=== PATIENT | male | born 1950 | race American Indian/Alaskan Native ===

== ENCOUNTER 2018-09-11 02:40 | Emergency (ER) | payer MEDICARE, OTHER ==
[2018-09-11] MEDS ORDERED: NACL 0.9% 1000 ML 1,000 ML IV ONE (02:47)
[2018-09-11] MEDS ORDERED: ZOFRAN IV ONE (03:47)
[2018-09-11] MEDS ORDERED: MORPHINE IV ONE (03:47)
--- NOTE | 2018-09-11 03:48 | Emergency Department Report ---
<SARAH ANNE - Last Filed: 09/11/18 07:58> ED General Adult HPI - General Chief complaint: Abdominal Pain Stated complaint: SHARP PAIN IN LEFT SIDE Time Seen by Provider: 09/11/18 03:39 - Related Data Previous Rx's Medication Instructions Recorded Last Taken Type Ciprofloxacin HCl [Ciprofloxacin 500 mg PO Q12H #14 tab 09/11/18 Unknown Rx TAB] Ondansetron [Zofran Odt] 4 mg PO Q8HR PRN #14 tab.rapdis 09/11/18 Unknown Rx metroNIDAZOLE [Flagyl] 500 mg PO Q12HR #14 tab 09/11/18 Unknown Rx traMADol [Ultram 50 MG tab] 50 mg PO Q4HR PRN #14 tablet 09/11/18 Unknown Rx Allergies Allergy/AdvReac Type Severity Reaction Status Date / Time No Known Allergies Allergy Verified 09/11/18 03:46 ED Past Medical Hx - Medications Home Medications: Home Medications Medication Instructions Recorded Confirmed Last Taken Type Ciprofloxacin HCl [Ciprofloxacin 500 mg PO Q12H #14 tab 09/11/18 Unknown Rx TAB] Ondansetron [Zofran Odt] 4 mg PO Q8HR PRN #14 tab.rapdis 09/11/18 Unknown Rx metroNIDAZOLE [Flagyl] 500 mg PO Q12HR #14 tab 09/11/18 Unknown Rx traMADol [Ultram 50 MG tab] 50 mg PO Q4HR PRN #14 tablet 09/11/18 Unknown Rx ED Medical Decision Making - Lab Data Result diagrams: 09/11/18 02:52 09/11/18 02:52 - Medical Decision Making Mr Dorado is a 68-year-old man signed out to me by my colleague Dr. Harkins. Patient presents to the emergency room with complaint of left sided abdominal pain. The abdominal pain started in the left lower quadrant, and moved to the suprapubic region, constant for 12 hours. He stated that he has been having nausea and vomiting. No urinary symptoms, no testicular pain. Patient stated that he has been having fever and chills but denied any diarrhea. Patient labs reviewed and is unremarkable. CT abdomen and pelvis showed ileus but no evidence of bowel obstruction. Lactic acid is negative. Patient stated that he is feeling much better. No nausea or vomiting since he received the antibiotic medication. Patient stated that his pain is completely resolved now. On examination, patient is nontoxic and in no acute distress. Abdomen is soft, nontender, no guarding, no rebound tenderness or tenderness in the left lower quadrant area, no pulsating mass or hernia. Patient will be discharged on ciprofloxacin and Flagyl and Zofran and advised to follow-up with his primary care physician in the next 2-3 days. Patient also advised to return to the ER if his symptoms return. Patient understood the inst ruction well and agreed with the plan and stated that he will follow up with his primary care physician in the next 2-3 days. ED Disposition Clinical Impression: Abdominal pain, Ileus Disposition: DC- TO HOME OR SELFCARE Is pt being admited?: No Condition: Stable Instructions: Abdominal Pain (ED), Ileus (ED) Prescriptions: Ciprofloxacin HCl [Ciprofloxacin TAB] 500 mg PO Q12H #14 tab metroNIDAZOLE [Flagyl] 500 mg PO Q12HR #14 tab traMADol [Ultram 50 MG tab] 50 mg PO Q4HR PRN #14 tablet PRN Reason: Pain Ondansetron [Zofran Odt] 4 mg PO Q8HR PRN #14 tab.rapdis PRN Reason: Nausea And Vomiting [facility] Days <BRITTANY HARKINS - Last Filed: 09/12/18 11:57> ED General Adult HPI - General Source: patient, RN notes reviewed Mode of arrival: Ambulatory Limitations: No Limitations - History of Present Illness Initial comments: Primary care Dr.: Dr. Watson This is a 68-year-old gentleman. The patient is not known to this provider prev iously. The patient has a past medical history of appendectomy, questionable rupture, hypertension. The patient presents to the emergency room today with complaint of nontraumatic left sided abdominal pain. The abdominal pain started in the left lower quadrant, and moved to the suprapubic region. This patient has been present for 12 hours. It is constant. It increases with palpation. It decreases with rest. Positive nausea, positive vomiting. No urinary symptoms, no testicular pain. There is no headache, there is no neck pain, there is no chest pain, patient denies leg pain, leg swelling, fevers, chills. -: Gradual Location: abdomen Radiation: abdomen, periumbillical Severity scale (0 -10): 10 Quality: aching Consistency: other Improves with: other Worsens with: other Associated Symptoms: malaise, nausea/vomiting, weakness ED Review of Systems ROS: Stated complaint: SHARP PAIN IN LEFT SIDE Other details as noted in HPI Constitutional: denies: fever Eyes: denies: vision change ENT: denies: epistaxis Respiratory: denies: cough Cardiovascular: denies: chest pain Gastrointestinal: abdominal pain, nausea, vomiting Genitourinary: denies: urgency, dysuria, frequency, hematuria, testicular pain Musculoskeletal: denies: back pain Skin: denies: lesions Neurological: denies: headache Psychiatric: denies: anxiety ED Past Medical Hx - Past Medical History Previous Medical History?: Yes Hx Hypertension: Yes Hx Arthritis: Yes Additional medical history: High Cholesterol - Surgical History Past Surgical History?: Yes Hx Appendectomy: Yes Additional Surgical History: Ruptured Appendix December 2017 - Social History Smoking Status: Never Smoker ED Physical Exam - General Limitations: No Limitations General appearance: alert, anxious, in distress - Head Head exam: Present: atraumatic, normocephalic - Eye Eye exam: Present: normal appearance, EOMI. Absent: nystagmus - ENT ENT exam: Present: normal exam, normal orophraynx, mucous membranes moist, normal external ear exam - Neck Neck exam: Present: normal inspection, full ROM. Absent: tenderness, meningismus - Respiratory Respiratory exam: Present: normal lung sounds bilaterally. Absent: respiratory distress - Cardiovascular Cardiovascular Exam: Present: regular rate, normal rhythm, normal heart sounds. Absent: bradycardia, tachycardia, irregular rhythm, systolic murmur, diastolic m urmur, rubs, gallop - GI/Abdominal GI/Abdominal exam: Present: soft, tenderness, other (there is left upper quadrant, left flank tenderness.). Absent: distended, guarding, rebound, rigid, pulsatile mass - Rectal Rectal exam: Present: deferred - exam: Present: normal inspection. Absent: testicular tenderness External exam: Present: normal external exam, other (chaperoned by nurse juan enriquez). Absent: erythema, lacerations, ecchymosis, bleeding - Extremities Exam Extremities exam: Present: normal inspection, full ROM, other (2+ pulses noted in the bilateral upper, lower extremities. Compartments soft. No long bony tenderness. The pelvis is stable.). Absent: pedal edema, joint swelling, calf tenderness - Back Exam Back exam: Present: normal inspection, full ROM. Absent: tenderness, CVA tenderness (R), paraspinal tenderness, vertebral tenderness - Neurological Exam Neurological exam: Present: alert, oriented X3, other (Extraocular movements intact. Tongue midline. No facial droop. Facial sensation intact to light touch in the V1, V2, V3 distribution bilaterally. 5 and 5 strength in 4 extremities.. Sensation is intact to light touch in 4 extremities.). Absent: motor sensory deficit - Psychiatric Psychiatric exam: Present: normal affect, normal mood - Skin Skin exam: Present: warm, dry, intact, normal color. Absent: rash ED Course Vital Signs 09/11/18 09/11/18 09/11/18 02:43 02:45 03:24 Temperature 98.2 F 98.2 F Pulse Rate 92 H 86 103 H Respiratory 18 18 Rate Blood Pressure 142/95 142/95 O2 Sat by Pulse 96 97 Oximetry 09/11/18 09/11/18 09/11/18 03:30 03:46 04:00 Temperature Pulse Rate 85 82 82 Respiratory 21 18 25 H Rate Blood Pressure 149/86 149/86 148/85 O2 Sat by Pulse 97 96 94 Oximetry 09/11/18 09/11/18 09/11/18 04:16 04:30 04:46 Temperature Pulse Rate 88 72 73 Respiratory 20 21 19 Rate Blood Pressure 148/85 148/85 148/85 O2 Sat by Pulse 96 95 95 Oximetry 09/11/18 09/11/18 09/11/18 05:04 05:16 05:30 Temperature Pulse Rate 91 H 74 81 Respiratory 32 H 22 17 Rate Blood Pressure 148/85 148/85 148/85 O2 Sat by Pulse Oximetry 09/11/18 09/11/18 09/11/18 06:00 06:16 06:30 Temperature Pulse Rate 81 107 H 84 Respiratory 21 18 20 Rate Blood Pressure 130/84 130/84 139/87 O2 Sat by Pulse Oximetry 09/11/18 09/11/18 09/11/18 06:46 07:00 07:16 Temperature Pulse Rate 80 80 82 Respiratory 17 17 17 Rate Blood Pressure 139/87 133/85 133/85 O2 Sat by Pulse Oximetry 09/11/18 09/11/18 09/11/18 07:30 07:46 08:00 Temperature Pulse Rate 80 83 81 Respiratory 16 18 20 Rate Blood Pressure 133/85 133/85 131/83 O2 Sat by Pulse Oximetry 09/11/18 08:16 Temperature Pulse Rate 84 Respiratory 23 Rate Blood Pressure 131/83 O2 Sat by Pulse Oximetry - Reevaluation(s) Reevaluation #1: 09/11/18 04:16 Differential diagnosis, including but not limited to: Colitis, diverticulitis, renal colic, inflammatory bowel disease Assessment and plan: 68-year-old gentleman with left-sided abdominal pain, nause a and vomiting. He is afebrile with reassuring vital signs, and appears to be uncomfortable. EKG nonspecific, not having chest pain, doubt atypical presentation of acute coronary syndrome. We will treat the patient's pain aggressively. Screening laboratory studies, urinalysis have been obtained. CT scan of the abdomen and pelvis has been ordered, and is pending at this time. Reevaluation #2: 09/11/18 05:37 care will be transferred to the oncoming er physician Dr Anne, to follow up on ct a/p and reassess after initial therapies would plan for discharge if ct a/p negative for acute disease and patient feeling improved and able to tolerate liquids Reevaluation #3: 09/11/18 05:42 CT scan of the abdomen and pelvis suggest possible ileus. Patient requesting additional pain medication, nausea medication. Reglan, fentanyl ordered. Care will be transferred to the oncoming ER physician to reassess after these therapies have been administered. If still vomiting and having pain, would admit for observation, and anti-medics, pain control. ED Medical Decision Making - Lab Data Result diagrams: 09/11/18 02:52 09/11/18 02:52 Vital Signs 09/11/18 09/11/18 02:43 02:45 Temperature 98.2 F 98.2 F Pulse Rate 92 H 86 Respiratory 18 18 Rate Blood Pressure 142/95 142/95 O2 Sat by Pulse 96 97 Oximetry Lab Results 09/11/18 09/11/18 Range/Units 02:52 03:30 WBC 10.6 (4.5-11.0) K/mm3 RBC 5.55 H (3.65-5.03) M/mm3 Hgb 16.1 H (11.8-15.2) gm/dl Hct 46.9 H (35.5-45.6) % MCV 85 (84-94) fl MCH 29 (28-32) pg MCHC 34 (32-34) % RDW 15.4 H (13.2-15.2) % Plt Count 302 (140-440) K/mm3 Lymph % (Auto) 8.7 L (13.4-35.0) % [place] % (Auto) 4.7 (0.0-7.3) % Eos % (Auto) 0.1 (0.0-4.3) % Baso % (Auto) 0.3 (0.0-1.8) % Lymph # 0.9 L (1.2-5.4) K/mm3 [place] # 0.5 (0.0-0.8) K/mm3 Eos # 0.0 (0.0-0.4) K/mm3 Baso # 0.0 (0.0-0.1) K/mm3 Seg Neutrophils % 86.2 H (40.0-70.0) % Seg Neutrophils # 9.1 H (1.8-7.7) K/mm3 Urine Color Yellow (Yellow) Urine Turbidity Clear (Clear) Urine pH 5.0 (5.0-7.0) Ur Specific [place] 1.028 (1.003-1.030) Urine Protein 100 mg/dl (Negative) mg/dL Urine Glucose (UA) Neg (Negative) mg/dL Urine Ketones Tr (Negative) mg/dL Urine Blood Neg (Negative) Urine Nitrite Neg (Negative) Urine Bilirubin Neg (Negative) Urine Urobilinogen < 2.0 (<2.0) mg/dL Ur Leukocyte Esterase Neg (Negative) Urine WBC (Auto) 1.0 (0.0-6.0) /HPF Urine RBC (Auto) 1.0 (0.0-6.0) /HPF Urine Mucus Few /HPF - EKG Data -: EKG Interpreted by Wy EKG shows normal: sinus rhythm Rate: normal - EKG Data When compared to previous EKG there are: previous EKG unavailable 09/11/18 04:17 This is a normal sinus rhythm, 82 bpm, normal axis, normal intervals, Q wave not ed in the inferior leads, no prior for comparison, this is an abnormal EKG, this is not consistent with ST elevation myocardial infarction. - Radiology Data Radiology results: pending, report reviewed, image reviewed Print Report Referring Physician: BRITTANY HARKINS Patient Name: EMILY DORADO Date of : 1950 Sex: Male Report Date: 2018-09-11 Report Status: Finalized Findings [facility] [address] [place] [address] Cat Scan Report Signed Patient: EMILY DORADO MR#: [id number] : 1950 Acct:[id number] Age/Sex: 68 / M ADM Date: 09/11/18 Loc: ED Attending Dr: Ordering Physician: BRITTANY HARKINS MD Date of Service: 09/11/18 Procedure(s): CT abdomen pelvis w con Accession Number(s): [id number] cc: BRITTANY HARKINS MD PROCEDURE: CT ABDOMEN PELVIS W CON TECHNIQUE: Computerized axial tomography of the abdomen and pelvis was performed after the IV injection of iodinated nonionic contrast. CT DOSE LENGTH PRODUCT: 2729.1 mGycm HISTORY: abd pain n/v CO MPARISONS: None . FINDINGS: Visualized lower thorax: No significant abnormality. Liver: Normal size and attenuation. Spleen: Normal size and attenuation. Gallbladder and biliary system: Normal. Pancreas: Normal. Adrenals: Normal. Kidneys: Normal. GI tract: The stomach is normal. There are a few loops of dilated fluid and gas-filled small bowel in the mid and lower abdomen. Ileus is suspected. No obstruction is seen. There is been surgery in the right lower quadrant. This may represent surgical change from appendectomy. Moderate diverticular changes identified in the distal colon. . Lymph nodes and mesentery: Normal. Vasculature: Normal.. Bladder: Normal. Reproductive organs: Normal. Peritoneum: No free fluid. Musculoskeletal structures: Mild degenerative changes of the osseous structures.. Other: None . IMPRESSION: There are a few loops of dilated fluid and gas-filled small bowel in the mid and lower abdomen. Ileus is suspected. No obstruction is seen. Moderate diverticulosis of the di stal colon. . This document is electronically signed by Vanessa Bangura DO., September 11 2018 05:37:30 AM ET Transcribed By: [facility] Dictated By: VANESSA BANGURA MD Electronically Authenticated By: VANESSA BANGURA MD Signed Date/Time: 09/11/18 0539 Critical care attestation.: If time is entered above; I have spent that time in minutes in the direct care of this critically ill patient, excluding procedure time.
[2018-09-11 04:01] LABS: Bilirubin,Urine NEG (Negative); Blood,Urine NEG (Negative); Color,Urine Yellow (Yellow); Mucus,Urine FEW /HPF; Urobilinogen,Urine < 2.0 mg/dL (<2.0)
[2018-09-11 04:02] LABS: Basophils % (Auto) 0.3 % (0.0-1.8); Eosinophils % (Auto) 0.1 % (0.0-4.3); Hematocrit 46.9 % (35.5-45.6); Hemoglobin 16.1 gm/dl (11.8-15.2); Lymphocytes # (Auto) 0.9 K/mm3 (1.2-5.4); Lymphocytes % (Auto) 8.7 % (13.4-35.0); Mean Corpuscular HGB Conc 34 % (32-34); Mean Corpuscular Volume 85 fl (84-94); Monocytes # (Auto) 0.5 K/mm3 (0.0-0.8); Monocytes % (Auto) 4.7 % (0.0-7.3); Platelet Count 302 K/mm3 (140-440); Red Blood Count 5.55 M/mm3 (3.65-5.03); Red Cell Distribution Width 15.4 % (13.2-15.2)
[2018-09-11 04:29] LABS: Alanine Aminotransferase 41 units/L (7-56); Albumin 4.8 g/dL (3.9-5); BUN/Creatinine Ratio 14; Blood Urea Nitrogen 10 mg/dL (9-20); Calcium 9.3 mg/dL (8.4-10.2); Hemolysis Index 36
--- NOTE | 2018-09-11 05:39 | Cat Scan Report ---
PROCEDURE: CT ABDOMEN PELVIS W CON TECHNIQUE: Computerized axial tomography of the abdomen and pelvis was performed after the IV inject ion of iodinated nonionic contrast. CT DOSE LENGTH PRODUCT: 2729.1 mGycm HISTORY: abd pain n/v COMPARISONS: None . FINDINGS: Visualized lower thorax: No significant abnormality. Liver: Normal size and attenuation. Spleen: Normal size and attenuation. Gallbladder and biliary system: Normal. Pancreas: Normal. Adrenals: Normal. Kidneys: Normal. GI tract: The stomach is normal. There are a few loops of dilated fluid and gas-filled small bowel i n the mid and lower abdomen. Ileus is suspected. No obstruction is seen. There is been surgery in th e right lower quadrant. This may represent surgical change from appendectomy. Moderate diverticular c hanges identified in the distal colon. . Lymph nodes and mesentery: Normal. Vasculature: Normal.. Bladder: Normal. Reproductive organs: Normal. Peritoneum: No free fluid. Musculoskeletal structures: Mild degenerative changes of the osseous structures.. Other: None . IMPRESSION: There are a few loops of dilated fluid and gas-filled small bowel in the mid and lower a bdomen. Ileus is suspected. No obstruction is seen. Moderate diverticulosis of the distal colon. . This document is electronically signed by Vanessa Bangura DO., September 11 2018 05:37:30 AM ET
[2018-09-11] MEDS ORDERED: SUBLIMAZE IV ONE (05:43)
[2018-09-11] MEDS ORDERED: REGLAN IV ONE (05:43)
[2018-09-11 11:23] VITALS: BP 131/83
== END 2018-09-11 08:25 | disposition home or self-care (01) ==
LOC: ED 02:40
DX: K56.7 Ileus, unspecified (principal)
CPT/HCPCS: 36415; 74177; 80053; 81001; 82140; 83690; 84484; 85025; 93005; 93010; 96374; 96375; 99284; J2270; J2405; J2765; J3010; Q9967